=== PATIENT | female | born 1965 | race African-American/Black ===

== ENCOUNTER 2017-09-28 06:15 | Emergency (ER) | payer OTHER ==
[2017-09-28] MEDS ORDERED: Azithromycin 250 MG TAB ONE (06:50)
--- NOTE | 2017-09-28 08:32 | RAD ---
PA AND LATERAL CHEST RADIOGRAPH: Date: 09-28-17 History: Cough. Comparison: 08-24-11 FINDINGS: Cardiac silhouette and pulmonary vasculature are within normal limits. Lungs remain clear. There has been no interval change from prior study. IMPRESSION: No acute cardiopulmonary process. POS: [facility]
== END 2017-09-28 06:59 | disposition home or self-care (01) ==
LOC: NAV ERS 06:15
DX: J20.9 Acute bronchitis, unspecified (principal); E11.9 Type 2 diabetes mellitus without complications; I10 Essential (primary) hypertension; Z79.82 Long term (current) use of aspirin; Z79.84 Long term (current) use of oral hypoglycemic drugs; Z79.899 Other long term (current) drug therapy
CPT/HCPCS: 71020

== ENCOUNTER 2020-04-29 09:46 | Emergency (ER) | payer OTHER ==
[2020-04-30 15:32] LABS: SARS-CoV-2 MS2 Positive; SARS-CoV-2 N Gene Negative; SARS-CoV-2 S Gene Negative; SARS-CoV-2 orf1ab Negative
== END 2020-04-29 11:00 | disposition home or self-care (01) ==
LOC: NAV ERS 09:46
DX: Z20.828 Contact with and (suspected) exposure to other viral communicable diseases (principal); E78.5 Hyperlipidemia, unspecified; E78.00 Pure hypercholesterolemia, unspecified; E11.9 Type 2 diabetes mellitus without complications; I10 Essential (primary) hypertension; Z79.82 Long term (current) use of aspirin; Z79.899 Other long term (current) drug therapy; Z79.84 Long term (current) use of oral hypoglycemic drugs
CPT/HCPCS: 87635; 99283; U0003

== ENCOUNTER 2022-12-11 17:12 | Emergency (ER) | payer BC, OTHER ==
[2022-12-11 17:38] LABS: Bilirubin Negative (Negative); Blood, Urine Trace (Negative); Clarity Clear (Clear); Glucose, Urine (Dipstick) 500 mg/dL (Negative); Ketone, Urine Negative (Negative); Leukocyte Trace (Negative); Nitrite Negative (Negative); Protein, Urine (Dipstick) Negative (Neg-Trace); Urobilinogen 0.2 mg/dL (Less than 2); pH, Urine 5.5 (5.0-9.0)
[2022-12-11 17:46] LABS: RBC/HPF 0-3 HPF (0-3); Specific Gravity, Urine 1.008 (1.002-1.036); Squamous Epithelial 0-3 HPF (0-3); WBC/HPF 0-3 HPF (0-3)
== END 2022-12-11 18:15 | disposition home or self-care (01) ==
LOC: NAV ERS 17:12
DX: N39.0 Urinary tract infection, site not specified (principal); E78.00 Pure hypercholesterolemia, unspecified; I10 Essential (primary) hypertension; E11.9 Type 2 diabetes mellitus without complications; Z79.82 Long term (current) use of aspirin; Z79.84 Long term (current) use of oral hypoglycemic drugs; Z79.899 Other long term (current) drug therapy
CPT/HCPCS: 81003; 81015; 87086; 99283

== ENCOUNTER 2023-01-31 04:11 | Emergency (ER) | payer BC ==
[2023-01-31] MEDS ORDERED: Ibuprofen 800 MG TAB ONE (04:34)
== END 2023-01-31 05:00 | disposition home or self-care (01) ==
LOC: NAV ERS 04:11
DX: S92.424A Nondisplaced fracture of distal phalanx of right great toe, initial encounter for closed fracture (principal); E78.00 Pure hypercholesterolemia, unspecified; E11.9 Type 2 diabetes mellitus without complications; I10 Essential (primary) hypertension; W20.8XXA Other cause of strike by thrown, projected or falling object, initial encounter

== ENCOUNTER 2025-08-18 11:46 | Emergency (ER) | payer BC ==
[2025-08-18] MEDS ORDERED: Acetaminophen 500 MG TAB ONE (12:25)
== END 2025-08-18 12:40 | disposition home or self-care (01) ==
LOC: NAV ERS 11:46
DX: M62.830 Muscle spasm of back (principal); M62.838 Other muscle spasm; E78.00 Pure hypercholesterolemia, unspecified; E11.9 Type 2 diabetes mellitus without complications; I10 Essential (primary) hypertension; Z79.82 Long term (current) use of aspirin; Z79.899 Other long term (current) drug therapy; V89.2XXA Person injured in unspecified motor-vehicle accident, traffic, initial encounter
CPT/HCPCS: 99283